=== PATIENT | female | born 1955 | race Caucasian/White ===

== ENCOUNTER 2021-05-13 19:44 | Outpatient (REF) | payer MEDICARE, SELFPAY ==
[2021-05-15 09:52] LABS: COVID-19 RT-PCR UVMMC Result Negative (Negative)
== END 2021-05-13 19:45 | disposition home or self-care (01) ==
LOC: NCHCN 19:44
PROVIDERS: Visit Provider Internal Medicine
DX: Z20.822 Contact with and (suspected) exposure to COVID-19 (principal); J31.0 Chronic rhinitis; R05.8 Other specified cough
CPT/HCPCS: U0003